=== PATIENT | female | born 1960 | race Caucasian/White ===

== ENCOUNTER → 2017-08-20 | Outpatient (CLI) | payer OTHER ==
--- NOTE | 2017-08-21 08:04 | MM ---
Reason for exam: screening (asymptomatic). Last mammogram was performed 2 years and 1 month ago. History: Patient is postmenopausal and had first child at age 29. Family history of breast cancer in sister at age 62 and breast cancer in mother at age 79. Physical Findings: A clinical breast exam by your physician is recommended on an annual basis and results should be correlated with mammographic findings. MG 3D Screening Mammo W/Cad Bilateral CC and MLO view(s) were taken. Prior study comparison: July 06, 2015, bilateral MG diagnostic mammo w CAD AMADEO. June 22, 2014, right breast MG work up mamm w CAD RT. The breast tissue is heterogeneously dense. This may lower the sensitivity of mammography. There is no discrete abnormality. No significant changes when compared with prior studies. ASSESSMENT: Negative, BI-RAD 1 RECOMMENDATION: Routine screening mammogram of both breasts in 1 year.
== END | disposition home or self-care (01) ==
LOC: RADMAMWWP 07:15
PROVIDERS: ATTEND Internal Medicine
DX: Z12.31 Encounter for screening mammogram for malignant neoplasm of breast (principal); Z80.3 Family history of malignant neoplasm of breast
CPT/HCPCS: 77063; G0202

== ENCOUNTER → 2018-04-01 | Outpatient (CLI) | payer OTHER ==
--- NOTE | 2018-04-01 10:13 | US ---
EXAMINATION TYPE: US venous doppler duplex LE RT DATE OF EXAM: 04/01/2018 9:58 AM COMPARISON: NONE CLINICAL HISTORY: M79.604 PAIN IN RIGHT LEG. Patient bumped right leg (lower thigh) 2 months ago. Int ermittent throbbing pain SIDE PERFORMED: Right TECHNIQUE: The lower extremity deep venous system is examined utilizing real time linear array sonog ivana with graded compression, doppler sonography and color-flow sonography. VESSELS IMAGED: External Iliac Vein (EIV) Common Femoral Vein Deep Femoral Vein Greater Saphenous Vein * Femoral Vein Popliteal Vein Small Saphenous Vein * Proximal Calf Veins (* superficial vessels) Right Leg: No evidence of DVT Grayscale, color doppler, spectral doppler imaging performed of the deep veins of the lower extremiti es. There is normal flow, compressibility, vascular waveforms. IMPRESSION: No evident deep venous thrombosis at or above the right knee.
== END | disposition home or self-care (01) ==
LOC: RADUSWWP 09:21
PROVIDERS: ATTEND Internal Medicine Geriatric Medicine
DX: M79.604 Pain in right leg (principal)

== ENCOUNTER → 2018-08-26 | Outpatient (CLI) | payer OTHER ==
--- NOTE | 2018-08-26 10:29 | MM ---
Reason for exam: screening (asymptomatic). Last mammogram was performed 1 year ago. History: Patient is postmenopausal and had first child at age 29. Family history of breast cancer in sister at age 62 and breast cancer in mother at age 79. Physical Findings: A clinical breast exam by your physician is recommended on an annual basis and results should be correlated with mammographic findings. MG 3D Screening Mammo W/Cad Bilateral CC and MLO view(s) were taken. Prior study comparison: August 20, 2017, bilateral MG 3d screening mammo w/cad. July 06, 2015, bilateral MG diagnostic mammo w CAD AMADEO. The breast tissue is heterogeneously dense. This may lower the sensitivity of mammography. No suspicious abnormality on left breast. There is posterior depth distortion within the slightly lateral right breast on 3D CC with possible upper right breast correlate. ASSESSMENT: Incomplete: need additional imaging evaluation, BI-RAD 0 RECOMMENDATION: Special view mammogram of the right breast. If lesion persists on supplemental views, image directed ultrasound is recommended. [facility] will attempt to contact patient to return for supplemental views and ultrasound if indicated.
== END | disposition home or self-care (01) ==
LOC: RADMAMWWP 06:56
PROVIDERS: ATTEND Internal Medicine Geriatric Medicine
DX: Z12.31 Encounter for screening mammogram for malignant neoplasm of breast (principal)
CPT/HCPCS: 77063; 77067

== ENCOUNTER → 2018-08-29 | Outpatient (CLI) | payer OTHER ==
--- NOTE | 2018-08-29 16:16 | XR ---
EXAMINATION TYPE: XR Hip Complete RT DATE OF EXAM: 08/29/2018 CLINICAL HISTORY: Right hip and back pain TECHNIQUE: AP and frogleg views of the right hip are obtained. COMPARISON: None. FINDINGS: There is no acute fracture/dislocation evident in the right hip. The joint space in the r ight hip demonstrates mild joint space narrowing and acetabular roof sclerosis compatible with mild a rthropathy. No cam deformity. No suspicious osseous lesion. The overlying soft tissue appears unrema rkable. IMPRESSION: There is no acute fracture or dislocation in the right hip. Mild right femoral acetabula r arthropathy.
--- NOTE | 2018-08-29 16:19 | XR ---
EXAMINATION TYPE: XR lumbar spine 2 or 3V DATE OF EXAM: 08/29/2018 CLINICAL HISTORY: Back pain TECHNIQUE: Frontal and lateral views of the lumbar spine are obtained. COMPARISON: None FINDINGS: There are 5 lumbar type vertebral bodies identified. The lumbar spine shows satisfactory alignment without evidence of acute fracture or dislocation. Vertebral body heights and disk space he ights are within normal limits. Facet arthropathy is seen at L4-L5 and L5-S1 and to a lesser degree a t L3-4. Small anterior osteophytes are present at L4-L5 and very small osteophytes at L3-L4 and L2-L3 . Mild atherosclerosis of the abdominal aorta is noted. The overlying soft tissue appears unremarkabl e. IMPRESSION: No acute fracture or malalignment is seen in the lumbar spine. Mild multilevel degenerat azra changes of the lumbar spine are more pronounced at L4-5 and L5-S1.
== END | disposition home or self-care (01) ==
LOC: RADXRMAIN 14:33
PROVIDERS: ATTEND Nurse Practitioner Family
DX: M51.37 Other intervertebral disc degeneration, lumbosacral region (principal); M16.11 Unilateral primary osteoarthritis, right hip
CPT/HCPCS: 72100; 73502

== ENCOUNTER → 2018-09-01 | Outpatient (CLI) | payer OTHER ==
--- NOTE | 2018-09-02 09:21 | MM ---
Reason for exam: additional evaluation requested from abnormal screening. Last mammogram was performed less than 1 month ago. History: Patient is postmenopausal and had first child at age 29. Family history of breast cancer in sister at age 62 and breast cancer in mother at age 79. Physical Findings: Nurse did not find any significant physical abnormalities on exam. MG 3D Work Up W/Cad RT Spot compression CC, spot compression MLO, and ML view(s) were taken of the right breast. Prior study comparison: August 26, 2018, bilateral MG 3d screening mammo w/cad. August 20, 2017, bilateral MG 3d screening mammo w/cad. The breast tissue is heterogeneously dense. This may lower the sensitivity of mammography. Nodule is noted upper outer quadrant right breast 5cm from nipple. Additional posterior mole. These results were verbally communicated with the patient and result sheet given to the patient on 09/01/18. ASSESSMENT: Incomplete: need additional imaging evaluation, BI-RAD 0 RECOMMENDATION: Ultrasound of the right breast.
--- NOTE | 2018-09-02 09:22 | USB ---
Reason for exam: additional evaluation requested from abnormal screening. History: Patient is postmenopausal and had first child at age 29. Family history of breast cancer in sister at age 62 and breast cancer in mother at age 79. US Breast Workup Limited RT Right limited breast ultrasound including focal area of concern, retroareolar and axilla demonstrates no cystic or solid lesion seen. These results were verbally communicated with the patient and result sheet given to the patient on 09/01/18. ASSESSMENT: Probably benign, BI-RAD 3 RECOMMENDATION: Follow-up diagnostic mammogram of the right breast in 6 months.
== END | disposition home or self-care (01) ==
LOC: RADMAMWWP 13:34
PROVIDERS: ATTEND Internal Medicine Geriatric Medicine
DX: R92.8 Other abnormal and inconclusive findings on diagnostic imaging of breast (principal)
CPT/HCPCS: 77065; 76642; G0279; 77061

== ENCOUNTER → 2018-09-23 | Outpatient (CLI) | payer OTHER ==
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
== END ==
LOC: RADBDWWP 07:03
PROVIDERS: ATTEND Internal Medicine Geriatric Medicine
DX: M85.80 Other specified disorders of bone density and structure, unspecified site (principal)
CPT/HCPCS: 77080

== ENCOUNTER → 2019-03-13 | Outpatient (CLI) | payer OTHER ==
--- NOTE | 2019-03-13 08:40 | MM ---
Reason for exam: follow-up at short interval from prior study. Last mammogram was performed 6 months ago. History: Patient is postmenopausal and had first child at age 29. Family history of breast cancer in sister at age 62 and breast cancer in mother at age 79. Physical Findings: Nurse did not find any significant physical abnormalities on exam. MG 3D Diag Mammo W/Cad RT CC and MLO view(s) were taken of the right breast. Prior study comparison: September 01, 2018, right breast MG 3d work up w/cad RT. August 26, 2018, bilateral MG 3d screening mammo w/cad. There are scattered fibroglandular densities. There is no discrete abnormality. These results were verbally communicated with the patient and result sheet given to the patient on 03/13/19. ASSESSMENT: Negative, BI-RAD 1 RECOMMENDATION: Return to routine screening mammogram schedule for both breasts. Back on schedule for July 2019.
== END | disposition home or self-care (01) ==
LOC: RADMAMWWP 06:53
PROVIDERS: ATTEND Internal Medicine Geriatric Medicine
DX: R92.2 Inconclusive mammogram (principal)
CPT/HCPCS: 77065; G0279; 77061

== ENCOUNTER → 2019-09-07 | Outpatient (CLI) | payer OTHER ==
--- NOTE | 2019-09-08 09:45 | MM ---
Reason for exam: screening (asymptomatic). Last mammogram was performed 6 months ago. History: Patient is postmenopausal and had first child at age 29. Family history of breast cancer in sister at age 62 and breast cancer in mother at age 79. Physical Findings: A clinical breast exam by your physician is recommended on an annual basis and results should be correlated with mammographic findings. MG 3D Screening Mammo W/Cad Bilateral CC and MLO view(s) were taken. Prior study comparison: March 13, 2019, right breast MG 3d diag mammo w/cad RT. September 01, 2018, right breast MG 3d work up w/cad RT. The breast tissue is heterogeneously dense. This may lower the sensitivity of mammography. There is chronic nodularity in the left breast. No significant changes when compared with prior studies. ASSESSMENT: Benign, BI-RAD 2 RECOMMENDATION: Routine screening mammogram of both breasts in 1 year.
== END | disposition home or self-care (01) ==
LOC: RADMAMWWP 13:46
PROVIDERS: ATTEND Internal Medicine Geriatric Medicine
DX: Z12.31 Encounter for screening mammogram for malignant neoplasm of breast (principal)
CPT/HCPCS: 77063; 77067

== ENCOUNTER → 2020-09-26 | Outpatient (CLI) | payer OTHER ==
--- NOTE | 2020-09-26 11:11 | BD ---
EXAMINATION TYPE: Axial Bone Density DATE OF EXAM: 09/26/2020 COMPARISON: 01/31/2013 CLINICAL HISTORY: 60-year-old female postmenopausal screening Height: 5 FT 5 IN Weight: 143 FRAX RISK QUESTIONS: Alcohol (3 or more units per day): NO Family History (Parent hip fracture): NO Glucocorticoids (More than 3mos): NO (Ex: prednisone, prednisolone, methylprednisolone, dexamethasone, and hydrocortisone). History of Fracture in Adulthood: NO Secondary Osteoporosis: 1. Type 1 Diabetes: NO 2. Hyperthyroidism: NO 3. Menopause before 45: YES 4. Malnutrition: NO 5. Chronic liver disease: NO Rheumatoid Arthritis: NO Current Tobacco Use: NO RISK FACTORS HISTORY OF: Family History of Osteoporosis: NO Active: YES Diet low in dairy products/other sources of calcium: NO Postmenopausal woman: AGE 43 Take estrogen and/or progesterone medications: NONE Lost more than 2 inches in height since high school: NO MEDICATIONS: Additional Medications: NONE Additional History: EXAM MEASUREMENTS: Bone mineral densitometry was performed using the Triage System. Bone mineral density as measured about the Lumbar spine is: ----- L1-L4(G/cm2): 0.954 T Score Values are as follows: ----- L2: -2.6 ----- L3: -1.9 ----- L4: -1.1 ----- L1-L4: -1.9 Bone mineral density has: DECREASED -1.7 % since study of: 2012 Bone mineral density about the R hip (g/cm2): 0.804 Bone mineral density about the L hip (g/cm2): 0.788 T Score values are as follows: -----R Neck: -1.7 -----L Neck: -1.8 -----R Total: -1.4 -----L Total: -1.2 Bone mineral density has: DECREASED -8.0 % since study of: 2012 IMPRESSION: Osteopenia (T Score between -2.5 and -1). There is slightly increased risk of fracture and the patient may be considered for treatment. Re-Screen 2-5 years. NOTE: T-SCORE=SD OF THE YOUNG ADULT MEAN.
--- NOTE | 2020-09-27 12:23 | MM ---
Reason for exam: screening (asymptomatic). Last mammogram was performed 1 year and 1 month ago. History: Patient is postmenopausal and had first child at age 29. Family history of breast cancer in sister at age 62 and breast cancer in mother at age 79. Physical Findings: A clinical breast exam by your physician is recommended on an annual basis and results should be correlated with mammographic findings. MG 3D Screening Mammo W/Cad Bilateral CC and MLO view(s) were taken. Prior study comparison: September 07, 2019, bilateral MG 3d screening mammo w/cad. March 13, 2019, right breast MG 3d diag mammo w/cad RT. The breast tissue is heterogeneously dense. This may lower the sensitivity of mammography. There is no discrete abnormality. ASSESSMENT: Negative, BI-RAD 1 RECOMMENDATION: Routine screening mammogram of both breasts in 1 year.
== END | disposition home or self-care (01) ==
LOC: RADMAMWWP 07:23
PROVIDERS: ATTEND Internal Medicine Geriatric Medicine
DX: Z12.31 Encounter for screening mammogram for malignant neoplasm of breast (principal); M85.80 Other specified disorders of bone density and structure, unspecified site; M81.0 Age-related osteoporosis without current pathological fracture
CPT/HCPCS: 77063; 77067; 77080

== ENCOUNTER 2021-08-25 16:18 | Emergency (ER) | payer OTHER ==
[2021-08-25] MEDS ORDERED: SODIUM CHLORIDE 0.9% 500 ML 500 ML IV STA (17:50)
--- NOTE | 2021-08-25 17:53 | ED ---
General Adult HPI - General Chief complaint: Recheck/Abnormal Lab/Rx Stated complaint: covid+, sent for infusion Time Seen by Provider: 08/25/21 17:30 Source: patient, RN notes reviewed Mode of arrival: ambulatory Limitations: no limitations - History of Present Illness Initial comments: Patient is a pleasant 61-year-old female presenting to the emergency department requesting monoclonal antibody infusion. Patient had positive tests today. Patient has had symptoms for the last 6 or 7 days. Patient has had extreme fatigue. Patient has had mild cough. Loss of taste loss of smell. Decreased appetite. No nausea and some loose stools. Patient has fever or chills and myalgias. Patient states she does have history of chronic kidney disease. - Related Data Allergies Allergy/AdvReac Type Severity Reaction Status Date / Time No Known Allergies Allergy Verified 08/25/21 17:19 Review of Systems ROS Statement: Those systems with pertinent positive or pertinent negative responses have been documented in the HPI. ROS Other: All systems not noted in ROS Statement are negative. Constitutional: Reports: fever, chills Eyes: Denies: eye pain ENT: Denies: ear pain Respiratory: Reports: cough. Denies: dyspnea Cardiovascular: Denies: chest pain Endocrine: Reports: fatigue Gastrointestinal: Reports: nausea, diarrhea. Denies: abdominal pain Genitourinary: Denies: dysuria Musculoskeletal: Denies: back pain Skin: Denies: rash Neurological: Denies: weakness Past Medical History Past Medical History: Hypertension Additional Past Medical History / Comment(s): hypercholestremia History of Any Multi-Drug Resistant Organisms: None Reported Past Surgical History: No Surgical Hx Reported Past Psychological History: No Psychological Hx Reported Smoking Status: Never smoker Past Alcohol Use History: Rare Past Drug Use History: None Reported General Exam Limitations: no limitations General appearance: alert, in no apparent distress Head exam: Present: normocephalic Eye exam: Present: normal appearance Neck exam: Present: normal inspection Respiratory exam: Present: normal lung sounds bilaterally Cardiovascular Exam: Present: regular rate, normal rhythm GI/Abdominal exam: Present: soft. Absent: tenderness Extremities exam: Present: normal inspection Neurological exam: Present: alert Psychiatric exam: Present: normal affect, normal mood Skin exam: Present: normal color Course Vital Signs 08/25/21 17:14 Temperature 98.8 F Pulse Rate 86 Respiratory 20 Rate Blood Pressure 158/102 O2 Sat by Pulse 95 Oximetry Disposition Clinical Impression: COVID-19 Disposition: HOME SELF-CARE Condition: Stable Instructions (If sedation given, give patient instructions): Coronavirus Disease 2019 (COVID-19) Additional Instructions: Discharge following observation. Following monoclonal antibodies. Over-the- counter Tylenol as needed. [id number] vitamin C, vitamin D, and zinc. Melatonin may help as well. Return for difficulty breathing, not telling fluids, worsening symptoms or other concerns. Is patient prescribed a controlled substance at d/c from ED?: No Referrals: Filiberto Burdick MD [Primary Care Provider] - 1-2 days Time of Disposition: 17:53
[2021-08-25] MEDS ORDERED: SODIUM CHLORIDE 0.9% 50 ML IVPB ONE (18:15)
[2021-08-25] MEDS ORDERED: CASIRIVIMAB (REGN10933) (EUA) 600 MG, IMDEVIMAB (REGN10987) (EUA) 600 MG in SODIUM CHLO... IVPB ONE (18:30)
[2021-08-25 18:54] VITALS: PULSE 74; RESP 16
[2021-08-25 20:02] VITALS: BP 151/96; TEMP 99
== END 2021-08-25 20:21 | disposition home or self-care (01) ==
LOC: EC 16:18
DX: U07.1 COVID-19 (principal); I12.9 Hypertensive chronic kidney disease with stage 1 through stage 4 chronic kidney disease, or unspecified chronic kidney disease; N18.9 Chronic kidney disease, unspecified; E78.00 Pure hypercholesterolemia, unspecified
CPT/HCPCS: 99283; Q0243

== ENCOUNTER → 2021-09-25 | Outpatient (CLI) | payer OTHER ==
--- NOTE | 2021-09-25 11:06 | CT ---
EXAMINATION TYPE: CT sinus wo con DATE OF EXAM: 09/25/2021 COMPARISON: None HISTORY: Chronic Sinusitis CT DLP: 596.50 mGycm CONTRAST: None The paranasal sinuses are examined in the axial plane at 2 mm thick sections. Reconstructed images i n the coronal plane were obtained. The maxillary sinuses are clear. The ethmoid air cells are clear. The sphenoid sinuses are clear. The frontal sinuses are clear. The septum is evaluated. There is septal deviation to the left. The ostiomeatal units are patent. IMPRESSIONS: 1. No suspicious acute or chronic changes for sinusitis.
== END | disposition home or self-care (01) ==
LOC: RADCTMAIN 08:01
PROVIDERS: ATTEND Otolaryngology
DX: J34.2 Deviated nasal septum (principal)
CPT/HCPCS: 70486

== ENCOUNTER → 2021-09-27 | Outpatient (CLI) | payer OTHER ==
--- NOTE | 2021-09-27 09:35 | MM ---
Reason for exam: clinical finding. Last mammogram was performed 1 year ago. History: Patient is postmenopausal and had first child at age 29. Family history of breast cancer in sister at age 62 and breast cancer in mother at age 79. Physical Findings: Nurse did not find any significant physical abnormalities on exam. MG 3D Diag Mammo W/Cad AMADEO Bilateral CC and MLO view(s) were taken. Prior study comparison: September 26, 2020, bilateral MG 3d screening mammo w/cad. September 07, 2019, bilateral MG 3d screening mammo w/cad. The breast tissue is heterogeneously dense. This may lower the sensitivity of mammography. There is no discrete abnormality including area of concern right 11-12 o'clock area of pain. No significant new findings when compared with previous films. These results were verbally communicated with the patient and result sheet given to the patient on 09/27/21. ASSESSMENT: Benign, BI-RAD 2 RECOMMENDATION: Ultrasound of the right breast. (pain) Manage patient on a clinical basis.
--- NOTE | 2021-09-27 09:36 | USB ---
Reason for exam: additional evaluation requested from abnormal screening. History: Patient is postmenopausal and had first child at age 29. Family history of breast cancer in sister at age 62 and breast cancer in mother at age 79. US Breast Limited RT Technologist: Carolina Viramontes Right limited breast ultrasound including focal area of concern, retroareolar and axilla demonstrates no cystic or solid lesion seen. These results were verbally communicated with the patient and result sheet given to the patient on 09/27/21. ASSESSMENT: Negative, BI-RAD 1 RECOMMENDATION: Routine screening mammogram of both breasts in 1 year. Manage on a clinical basis with regard to pain.
== END | disposition home or self-care (01) ==
LOC: RADMAMWWP 06:59
PROVIDERS: ATTEND Internal Medicine Geriatric Medicine
DX: R92.2 Inconclusive mammogram (principal); Z80.3 Family history of malignant neoplasm of breast; Z78.0 Asymptomatic menopausal state
CPT/HCPCS: 77066; 76642; G0279; 77062

== ENCOUNTER → 2022-03-05 | Outpatient (CLI) | payer OTHER ==
--- NOTE | 2022-03-05 14:22 | CT ---
EXAMINATION TYPE: CT brain wo con DATE OF EXAM: 03/05/2022 COMPARISON: None available HISTORY: dizziness, htn CT DLP: 1118 mGycm Automated exposure control for dose reduction was used. TECHNIQUE: CT scan of the brain is performed without IV contrast administration. FINDINGS: Bilateral cerebral white matter hypodensities, nonspecific. Scattered arterial atherosclerotic calcif ications. No acute intracranial hemorrhage. No gross acute cortical infarct. No midline shift, hernia tion or ventriculomegaly. Unremarkable castillo-white matter differentiation, basal cisterns, sella and CP angles. No gross space-o ccupying lesion, vasogenic edema or mass effect. Unremarkable orbits. Clear visualized paranasal sinuses and mastoid air cells. No aggressive bone les ion. IMPRESSION: Bilateral cerebral white matter hypodensities, nonspecific. This could be related to mild chronic diana rovascular ischemic changes however other white matter abnormality like demyelinating disease cannot be excluded. Please correlate clinically. Further MRI assessment and/or neurology consultation can be considered if clinically required.
--- NOTE | 2022-03-05 15:18 | US ---
EXAMINATION TYPE: US carotid duplex BILAT DATE OF EXAM: 03/05/2022 COMPARISON: NONE CLINICAL HISTORY: G45.9 TIA. HTN EXAM MEASUREMENTS: RIGHT: Peak Systolic Velocity (PSV) cm/sec ----- Right CCA: 81.2 ----- Right ICA: 105 ----- Right ECA: 90.9 ICA/CCA ratio: 1.29 RIGHT: End Diastole cm/sec ----- Right CCA: 27.9 ----- Right ICA: 43.5 ----- Right ECA: 11.0 LEFT: Peak Systolic Velocity (PSV) cm/sec ----- Left CCA: 77.5 ----- Left ICA: 86.6 ----- Left ECA: 78.6 ICA/CCA ratio: 1.12 LEFT: End Diastole cm/sec ----- Left CCA: 25.2 ----- Left ICA: 38.4 ----- Left ECA: 8.6 VERTEBRALS (direction of flow): Right Vertebral: Antegrade Left Vertebral: Antegrade Rhythm: Normal Minimal plaque bilateral bifurcations. no evidence of increased velocities IMPRESSION: No hemodynamically significant stenosis in either internal carotid artery. Criteria for Assigning % of Stenosis / Diameter reduction (Estimation based on the indirect measurements of the internal carotid artery velocities (ICA PSV). 1. Normal (no stenosis)=ICA PSV < 125 cm/s: ratio < 2.0: ICA EDV<40 cm/s. 2. Less than 50% stenosis=ICA PSV < 125 cm/s: ratio < 2.0: ICA EDV<40 cm/s. 3. 50 to 69% stenosis=ICA PSV of 125 to 230 cm/s: ration 2.0 ? 4.0: ICA EDV 40-100 cm/s. 4. Greater than 70% stenosis to near occlusion= ICA PSV > 230 cm/s: ratio > 4.0: ICA EDV > 100 cm/s. 5. Near occlusion= ICA PSV velocities may be low or undetectable: variable ratio and ICA EDV. 6. Total occlusion=unable to detect flow.
== END | disposition home or self-care (01) ==
LOC: RADCTMAIN 13:40
PROVIDERS: ATTEND Internal Medicine Geriatric Medicine
DX: I10 Essential (primary) hypertension (principal); R90.82 White matter disease, unspecified; G45.9 Transient cerebral ischemic attack, unspecified
CPT/HCPCS: 70450; 93880

== ENCOUNTER → 2022-09-28 | Outpatient (CLI) | payer OTHER ==
--- NOTE | 2022-09-28 11:55 | MM ---
Reason for Exam: Screening (asymptomatic). Last screening mammogram was performed 12 month(s) ago. Patient History: Menarche at age 15. First Full-Term at age 29. Late child-bearing (after 30). Postmenopausal. Patient has history of breast feeding. Sister had breast cancer, age 62. Mother had breast cancer, age 79. Risk Values: Bina 5 year model risk: 4.3%. NCI Lifetime model risk: 16.6%. Prior Study Comparison: 08/20/2017 Bilateral Screening Mammogram, [facility]. 08/26/2018 Bilateral Screening Mammogram, [facility]. 09/01/2018 Right Diagnostic Mammogram, [facility]. 03/13/2019 Right Diagnostic Mammogram, [facility]. 09/07/2019 Bilateral Screening Mammogram, [facility]. 09/26/2020 Bilateral Screening Mammogram, [facility]. 09/27/2021 Bilateral Diagnostic Mammogram, [facility]. Tissue Density: There are scattered fibroglandular densities. Findings: Analyzed By CAD. Asymmetric density central right CC view is unchanged from prior exams. No significant change from prior studies. There is no suspicious group of microcalcifications or new suspicious mass in either breast. Overall Assessment: Negative, BI-RAD 1 Management: Screening Mammogram of both breasts in 1 year. 1. Per NCCN guidelines, a 5 year risk of 1.67 above the general population may qualify the patient for risk reduction therapy. Consider specialist referral for further assessment. 2. Patient should continue monthly self breast exams. 3. This exam should not preclude additional follow-up of suspicious palpable abnormalities. Electronically signed and approved by: Wayne Jones M.D. Radiologist
--- NOTE | 2022-09-28 12:09 | BD ---
EXAMINATION TYPE: Axial Bone Density DATE OF EXAM: 09/28/2022 COMPARISON: 09/26/2020 CLINICAL HISTORY: 62 years year old Female. ICD-10 CODE: M810 AGE RELATED OSTEOPOROSIS Height: 65 IN Weight: 131 LBS RISK FACTORS HISTORY OF: Active: YES Postmenopausal woman: AGE 43 MEDICATIONS: Additional Medications: CALCIUM, VIT D, EXAM MEASUREMENTS: Bone mineral densitometry was performed using the [employer] System. Bone mineral density as measured about the Lumbar spine is: ----- L1-L4(G/cm2): 0.894 T Score Values are as follows: ----- L1: -3.1 ----- L2: -2.8 ----- L3: -2.5 ----- L4: -1.6 ----- L1-L4: -2.4 Bone mineral density has: Decreased -5.4% since study of: 09/26/2020 Bone mineral density about the R hip (g/cm2): 0.797 Bone mineral density about the L hip (g/cm2): 0.756 T Score values are as follows: -----R Neck: -1.7 -----L Neck: -2.0 -----R Total: -1.5 -----L Total: -1.6 Bone mineral density has: Decreased -4.6% since study of: 09/26/2020 FRAX%s: The graph provided illustrates a 9.9 chance for a major osteoporotic fx and a 1.6 chance for the hips probability for fx in 10 years time. IMPRESSION: Osteopenia (T Score between -2.5 and -1). There is slightly increased risk of fracture and the patient may be considered for treatment. Re-Screen 2-5 years. NOTE: T-SCORE=SD OF THE YOUNG ADULT MEAN.
== END | disposition home or self-care (01) ==
LOC: RADMAMWWP 06:53
PROVIDERS: ATTEND Family Medicine
DX: Z12.31 Encounter for screening mammogram for malignant neoplasm of breast (principal); M85.89 Other specified disorders of bone density and structure, multiple sites; Z80.3 Family history of malignant neoplasm of breast; Z78.0 Asymptomatic menopausal state
CPT/HCPCS: 77067; 77080

== ENCOUNTER → 2022-10-04 | Outpatient (CLI) | payer OTHER ==
[~2022-10-04] MED LIST: SODIUM CHLORIDE 0.9% 500 ML 500 ML in EMPTY BAG 1 BAG IV PRN; ZOLEDRONIC ACID 5 MG in SODIUM CHLORIDE 0.9% 100 ML IV NR
[2022-10-04 08:32] VITALS: BP 135/87; PULSE 77; RESP 16; TEMP 97.1
== END ==
LOC: PROCWHC3 08:19
PROVIDERS: ATTEND Family Medicine
DX: M81.0 Age-related osteoporosis without current pathological fracture (principal)
CPT/HCPCS: 96365; J3489

== ENCOUNTER → 2023-10-07 | Outpatient (CLI) | payer MEDICARE, OTHER ==
[2023-10-07 07:43] VITALS: BP 153/89; PULSE 85; RESP 16; TEMP 97.9
== END ==
LOC: PROCWHC3 07:21
PROVIDERS: ATTEND Internal Medicine Geriatric Medicine
DX: M81.0 Age-related osteoporosis without current pathological fracture (principal)
CPT/HCPCS: 96365; J3489

== ENCOUNTER → 2023-10-22 | Outpatient (CLI) | payer MEDICARE ==
--- NOTE | 2023-10-23 09:07 | MM ---
Reason for Exam: Screening (asymptomatic). Last screening mammogram was performed 12 month(s) ago. Patient History: Menarche at age 15. First Full-Term at age 29. Late child-bearing (after 30). Postmenopausal. Patient has history of breast feeding. Sister had breast cancer, age 62. Mother had breast cancer, age 79. Risk Values: Bina 5 year model risk: 4.5%. NCI Lifetime model risk: 16.0%. Prior Study Comparison: 09/26/2020 Bilateral Screening Mammogram, [facility]. 09/27/2021 Bilateral Diagnostic Mammogram, [facility]. 09/28/2022 Bilateral MG screening mammo w CAD, [facility]. Tissue Density: The breast tissue is heterogeneously dense. This may lower the sensitivity of mammography. Findings: Analyzed By CAD. There is no suspicious group of microcalcifications or new suspicious mass. Overall Assessment: Negative, BI-RAD 1 Management: Screening Mammogram of both breasts in [address] [facility] will attempt to contact patient to return for supplemental views and ultrasound if indicated. Patient should continue monthly self-breast exams. A clinical breast exam by your physician is recommended on an annual basis. This exam should not preclude additional follow-up of suspicious palpable abnormalities. Note on Bina scores and lifetime risk: 1. A Bina score greater than 3% is considered moderate risk. If this is the case, consider specialist referral to assess eligibility for a risk reducing agent. 2. If overall lifetime risk for the development of breast cancer is 20% or higher, the patient may qualify for future screening with alternating mammogram and breast MRI. Electronically signed and approved by: Vladimir Patel DO
== END | disposition home or self-care (01) ==
LOC: RADMAMWWP 16:05
PROVIDERS: ATTEND Family Medicine
DX: Z12.31 Encounter for screening mammogram for malignant neoplasm of breast (principal); Z80.3 Family history of malignant neoplasm of breast; Z78.0 Asymptomatic menopausal state
CPT/HCPCS: 77063; 77067

== ENCOUNTER → 2023-12-04 | Outpatient (CLI) | payer MEDICARE ==
--- NOTE | 2023-12-04 11:46 | XR ---
EXAMINATION TYPE: XR shoulder complete LT DATE OF EXAM: 12/04/2023 CLINICAL HISTORY: pain COMPARISON: NONE TECHNIQUE: Three views of the left shoulder are obtained. FINDINGS: There is no acute fracture/dislocation evident. The acromioclavicular and glenohumeral rmaon int spaces appear within normal limits. The visualized ribs are intact and unremarkable. IMPRESSION: 1. There is no acute fracture or dislocation. ICD 10 NO FRACTURE, INITIAL EVALUATION
== END | disposition home or self-care (01) ==
LOC: RADXRMAIN 11:28
PROVIDERS: ATTEND Internal Medicine Geriatric Medicine
DX: M25.512 Pain in left shoulder (principal)

== ENCOUNTER → 2024-08-04 | Outpatient (CLI) | payer MEDICARE ==
--- NOTE | 2024-08-05 08:36 | BD ---
EXAMINATION TYPE: Axial Bone Density DATE OF EXAM: 08/04/2024 CLINICAL HISTORY: 64 years old Female. ICD-10 CODE: M81.0 AGE-RELATED OSTEOPOROSIS W/O CURRENT PATHO LO Height: 66 Weight: 134 FRAX RISK QUESTIONS: Alcohol (3 or more units per day): no Family History (Parent hip fracture): no Glucocorticoids (More than 3mos): no (Ex: prednisone, prednisolone, methylprednisolone, dexamethasone, and hydrocortisone). History of Fracture in Adulthood: no Secondary Osteoporosis: 1. Type 1 Diabetes: no 2. Hyperthyroidism: no 3. Menopause before 45: no 4. Malnutrition: no 5. Chronic liver disease: no Rheumatoid Arthritis: no Current Tobacco Use: no RISK FACTORS HISTORY OF: Surgery to Spine/Hip(right/left)/Wrist (right/left): no EXAM MEASUREMENTS: Bone mineral densitometry was performed using the [employer]. Bone mineral density as measured about the Lumbar spine is: ----- L1-L4(G/cm2): 1.019 T Score Values are as follows: ----- L1: -1.9 ----- L2: -2.0 ----- L3: -1.6 ----- L4: -0.3 ----- L1-L4: -1.3 Z Score Values are as follows: ----- L1: -0.2 ----- L2: -0.3 ----- L3: 0.1 ----- L4: 1.5 ----- L1-L4: 0.4 Bone mineral density has: increased 14.0 % since study of: Bone mineral density about the R hip (g/cm2): 0.874 Bone mineral density about the L hip (g/cm2): 0.887 T Score values are as follows: -----R Neck: -1.7 -----L Neck: -1.8 -----R Total: -1.1 -----L Total: -1.0 Z Score values are as follows: -----R Neck: -0.1 -----L Neck: -0.2 -----R Total: 0.3 -----L Total: 0.4 Bone mineral density has: increased 8.8 % since study of: FRAX%s: The graph provided illustrates a 9.3% chance for a major osteoporotic fx and a 1.3% chance fo r the hips probability for fx in 10 years time. IMPRESSION: Osteopenia (T Score between -2.5 and -1). There is slightly increased risk of fracture and the patient may be considered for treatment. Re-Screen 2-5 years. NOTE: T-SCORE=SD OF THE YOUNG ADULT MEAN. [facility], , 08/05/2024 8:34 AM
--- NOTE | 2024-08-06 19:58 | MM ---
Reason for Exam: Screening (asymptomatic). Last screening mammogram was performed 10 month(s) ago. Patient History: Menarche at age 15. First Full-Term at age 29. Late child-bearing (after 30). Postmenopausal. Patient has history of breast feeding. Sister had breast cancer, age 62. Mother had breast cancer, age 79. Risk Values: Bina 5 year model risk: 4.5%. NCI Lifetime model risk: 15.5%. Prior Study Comparison: 08/26/2018 Bilateral Screening Mammogram, [facility]. 09/01/2018 Right Diagnostic Mammogram, [facility]. 09/01/2018 Right Diagnostic Ultrasound, [facility]. 03/13/2019 Right Diagnostic Mammogram, [facility]. 09/07/2019 Bilateral Screening Mammogram, [facility]. 09/26/2020 Bilateral Screening Mammogram, [facility]. 09/27/2021 Bilateral Diagnostic Mammogram, [facility]. 09/28/2022 Bilateral MG screening mammo w CAD, [facility]. 10/22/2023 Bilateral MG 3D screening mammo w/cad, [facility]. Tissue Density: There are scattered areas of fibroglandular density. Findings: Analyzed By CAD. Areas of asymmetric density are unchanged. There is no suspicious group of microcalcifications or new suspicious mass in either breast. Overall Assessment: Benign, BI-RAD 2 Management: Screening Mammogram of both breasts in 1 year. See note below in regards to the patient's increased 5 year Bina score. Patient should continue monthly self-breast exams. A clinical breast exam by your physician is recommended on an annual basis. This exam should not preclude additional follow-up of suspicious palpable abnormalities. Note on Bina scores and lifetime risk: 1. A Bina score greater than 3% is considered moderate risk. If this is the case, consider specialist referral to assess eligibility for a risk reducing agent. 2. If overall lifetime risk for the development of breast cancer is 20% or higher, the patient may qualify for future screening with alternating mammogram and breast MRI. [facility], , 08/06/2024 7:55 PM. Electronically signed and approved by: Wayne Jones M.D. Radiologist
== END | disposition home or self-care (01) ==
LOC: RADMAMWWP 10:57
PROVIDERS: ATTEND Internal Medicine Geriatric Medicine
DX: Z12.31 Encounter for screening mammogram for malignant neoplasm of breast (principal); M81.0 Age-related osteoporosis without current pathological fracture; Z78.0 Asymptomatic menopausal state; Z80.3 Family history of malignant neoplasm of breast; R92.323 Mammographic fibroglandular density, bilateral breasts; M85.89 Other specified disorders of bone density and structure, multiple sites
CPT/HCPCS: 77063; 77067; 77080